=== PATIENT | male | born 1965 | race Caucasian/White ===

== ENCOUNTER 2017-10-26 09:07 | Day surgery (SDC) | payer OTHER ==
[2017-10-26] MEDS ORDERED: hydrALAzine 20 MG INJ (11:56)
== END 2017-10-26 12:16 | disposition home or self-care (01) ==
LOC: GIL 09:07
DX: Z12.11 Encounter for screening for malignant neoplasm of colon (principal); D12.5 Benign neoplasm of sigmoid colon; K64.8 Other hemorrhoids; I10 Essential (primary) hypertension
CPT/HCPCS: 45380; 88305

== ENCOUNTER 2018-10-19 08:56 | Day surgery (SDC) | payer OTHER ==
[2018-10-19] MEDS ORDERED: FENTAnyl 50 MCG/ML VIAL IV ×2 (11:00)
[2018-10-19] MEDS ORDERED: ONDANSETRON 4 MG INJ IV (11:00)
[2018-10-19] MEDS ORDERED: hydrALAzine 20 MG INJ IV (11:00)
[2018-10-19] MEDS ORDERED: LABETALOL HCL 20MG INJ IV (11:00)
[2018-10-19] MEDS ORDERED: HYDROmorphONE 1 MG/5 ML IV SYRINGE IV ×2 (11:00)
[2018-10-19] MEDS ORDERED: PROPOFOL 40 ML (11:40)
== END 2018-10-19 15:10 | disposition home or self-care (01) ==
LOC: GIL 08:56
DX: D12.5 Benign neoplasm of sigmoid colon (principal); D3A.025 Benign carcinoid tumor of the sigmoid colon; K64.8 Other hemorrhoids
CPT/HCPCS: 45380; 88305